=== PATIENT | female | born 1980 | race Hispanic/Latino ===

== ENCOUNTER 2017-03-12 02:43 | Outpatient (CLI) | payer MEDICAID, OTHER ==
[2017-03-12 03:11] VITALS: BP 136/80
[2017-03-12] MEDS ORDERED: VISTARIL PO ONE (05:35)
== END 2017-03-12 06:00 | disposition home or self-care (01) ==
LOC: TRG 02:43 → LD 03:01 → TRG 06:00
PROVIDERS: ATTEND Obstetrics & Gynecology
DX: O09.523 Supervision of elderly multigravida, third trimester (principal); O62.9 Abnormality of forces of labor, unspecified; O48.0 Post-term pregnancy; Z3A.40 40 weeks gestation of pregnancy
CPT/HCPCS: Q0177

== ENCOUNTER 2017-03-12 17:09 | Inpatient (IN) | payer MEDICAID ==
[2017-03-12] MEDS ORDERED: PITOCin/NS 20 UNIT/1000ML DRIP 20,000 MILLIUNITS/1,000 ML BAG IV ONE (17:25)
[2017-03-12] MEDS ORDERED: LACTATED RINGERS 1,000 ML ONE (17:25)
[2017-03-12] MEDS ORDERED: SUBLIMAZE ONE (17:35)
[2017-03-12] MEDS ORDERED: PHENERGAN PR PRN ×2 (17:52→23:08)
[2017-03-12] MEDS ORDERED: PHENERGAN PO PRN ×2 (17:52→23:08)
[2017-03-12] MEDS ORDERED: SUBLIMAZE IV PRN (17:52)
[2017-03-12] MEDS ORDERED: ZOFRAN IV PRN ×2 (17:52→23:08)
[2017-03-12] MEDS ORDERED: MINERAL OIL PO PRN (17:52)
[2017-03-12] MEDS ORDERED: STADOL IV PRN (17:52)
--- NOTE | 2017-03-12 17:52 | History and Physical Report ---
History of Present Illness Date of examination: 03/12/17 Date of admission: 03/12/17 17:17 Chief complaint: Labor/srom History of present illness: EDC Confirmation: 03/15/2017 Gestational Age: 18 6/7 weeks Past History : 5 Term Births: 4 Living Children: 4 Para: 4 Prev : 0 Past Medical History: Reviewed history from 07/23/2014 and no changes required: Negative Past Medical History Past Surgical History: Reviewed history from 07/23/2014 and no changes required: negative Past Medical History Anesthesia Complications: negative Anemia: negative Autoimmune Disorder: negative Bleeding Disorder: negative Blood Transfusions: negative Breast Disease: negative Diabetes: negative Heart Disease: negative Hypertension: negative Hepatitis/Liver Disease: negative Kidney Disease/UTI: negative Neurologic/Epilepsy/Migraines: negative Phlebitis/Varicosities: negative Psychiatric: negative Pulmonary Disease/Asthma: negative Thyroid Disease: negative Hospitalizations: negative Surgery (Non-vice president of talent acquisition): negative Abnormal PAP: negative YASMIN Exposure: negative Infertility: negative Uterine Anomaly: negative Uterine Surgery (not C/S): negative Other Gynecologic Problems: negative 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 Infection History Hx of STD: none HIV Risk Eval: no Hepatitis B Risk Eval: low risk Personal hx. of genital herpes: no Partner hx. of genital herpes: no Rash, Viral, or Febrile illness since last LMP? no Varicella/Chicken Pox Status: Previous Disease Genetic History Congenital Heart Defect: Mom: no Dad: no Joanne Disease: Mom: no Dad: no Thalassemia Mom: no Dad: no Neural Tube Defect Mom: no Dad: no Down's Syndrome Mom: no Dad: no Skyler-Sachs Mom: no Dad: no Sickle Cell Disease/Trait Mom: no Dad: no Hemophilia Mom: no Dad: no Muscular Dystrophy Mom: no Dad: no Cystic Fibrosis Mom: no Dad: no [place] Chorea Mom: no Dad: no Mental Retardation Mom: no Dad: no Fragile X Mom: no Dad: no Other Genetic/Chromosomal Disorder Mom: no Dad: no Child w/other defect Mom: no Dad: no Comments/Counseling: Pt will be 37 at time of delivery, declines referral to [facility] ........................................................... ........Debo Awan GONSALO October 18, 2016 2:53 PM Enviromental Exposures Xray Exposure: no Medication, drug, or alcohol use since LMP: no Chemical/Other Exposure: no Exposure to Cat Liter: no Hx of Parvovirus (Fifth Disease): no Occupational Exposure to Children: none Active Medications (reviewed today): VITAMINS () NYSTATIN ORAL SUSPENSION [id number]/ML () 4-6 ml 1/2 dose - treated each side of mouth- 4times QD Retain in mouth for as long as possible then swallow Current Allergies (reviewed today):No known allergies Past History - Obstetrical History Expected Date of Delivery: 03/15/17 Actual Gestation: 39 Week(s) 4 Day(s) : 5 Medications and Allergies Allergies Allergy/AdvReac Type Severity Reaction Status Date / Time No Known Allergies Allergy Verified 03/12/17 17:20 Home Medications Medication Instructions Recorded Confirmed Last Taken Type Tablet 1 tab PO DAILY 02/24/15 03/12/17 03/10/17 09:00 History Review of Systems All systems: negative Genitourinary: leakage of fluid, contractions - Vital Signs Vital signs: Vital Signs Pulse BP 117 H 135/86 03/12/17 17:16 03/12/17 17:16 Temp Pulse Resp BP Pulse Ox 98.6 F 117 H 22 135/86 03/12/17 17:22 03/12/17 17:22 03/12/17 17:22 03/12/17 17:22 - Physical Exam Breasts: Positive: deferred Lungs: Positive: Normal air movement Abdomen: Positive: normal appearance - Obstetrical FHR: category 1 Uterine Contraction Monitor Mode: External Cervical Dilatation: 8 (per RN) Uterine Contraction Pattern: Regular Results All other labs normal. Assessment and Plan - Patient Problems (1) 39 weeks gestation of Current Visit: No Status: Acute Plan to address problem: Expectant management (2) Rupture of membranes with meconium present Current Visit: Yes Status: Acute
[2017-03-12] MEDS ORDERED: ePHEDrine SULFATE IV PRN (18:01)
[2017-03-12] MEDS ORDERED: NUBAIN IV PRN (18:02)
[2017-03-12] MEDS ORDERED: BRETHINE IVP PRN (18:30)
[2017-03-12] MEDS ORDERED: BRETHINE SUB-Q PRN (18:30)
--- NOTE | 2017-03-12 18:53 | Progress Note ---
Assessment and Plan - Patient Problems (1) 39 weeks gestation of Current Visit: No Status: Acute (2) Rupture of membranes with meconium present Current Visit: Yes Status: Acute Plan to address problem: Expectant management Subjective - Subjective Date of service: 03/12/17 Principal diagnosis: 39 weeks SROM, labo Interval history: EDC Confirmation: 03/15/2017 Gestational Age: 18 6/7 weeks Past History : 5 Term Births: 4 Living Children: 4 Para: 4 Prev : 0 Past Medical History: Reviewed history from 07/23/2014 and no changes required: Negative Past Medical History Past Surgical History: Reviewed history from 07/23/2014 and no changes required: negative Past Medical History Anesthesia Complications: negative Anemia: negative Autoimmune Disorder: negative Bleeding Disorder: negative Blood Transfusions: negative Breast Disease: negative Diabetes: negative Heart Disease: negative Hypertension: negative Hepatitis/Liver Disease: negative Kidney Disease/UTI: negative Neurologic/Epilepsy/Migraines: negative Phlebitis/Varicosities: negative Psychiatric: negative Pulmonary Disease/Asthma: negative Thyroid Disease: negative Hospitalizations: negative Surgery (Non-guidance adviser): negative Abnormal PAP: negative YASMIN Exposure: negative Infertility: negative Uterine Anomaly: negative Uterine Surgery (not C/S): negative Other Gynecologic Problems: negative 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 Infection History Hx of STD: none HIV Risk Eval: no Hepatitis B Risk Eval: low risk Personal hx. of genital herpes: no Partner hx. of genital herpes: no Rash, Viral, or Febrile illness since last LMP? no Varicella/Chicken Pox Status: Previous Disease Genetic History Congenital Heart Defect: Mom: no Dad: no Joanne Disease: Mom: no Dad: no Thalassemia Mom: no Dad: no Neural Tube Defect Mom: no Dad: no Down's Syndrome Mom: no Dad: no Skyler-Sachs Mom: no Dad: no Sickle Cell Disease/Trait Mom: no Dad: no Hemophilia Mom: no Dad: no Muscular Dystrophy Mom: no Dad: no Cystic Fibrosis Mom: no Dad: no Jennifer Chorea Mom: no Dad: no Mental Retardation Mom: no Dad: no Fragile X Mom: no Dad: no Other Genetic/Chromosomal Disorder Mom: no Dad: no Child w/other defect Mom: no Dad: no Comments/Counseling: Pt will be 37 at time of delivery, declines referral to [facility] .............................................................. .....Debo Lv [facility] October 18, 2016 2:53 PM Enviromental Exposures Xray Exposure: no Medication, drug, or alcohol use since LMP: no Chemical/Other Exposure: no Exposure to Cat Liter: no Hx of Parvovirus (Fifth Disease): no Occupational Exposure to Children: none Active Medications (reviewed today): VITAMINS () NYSTATIN ORAL SUSPENSION 601156GRNOG/ML () 4-6 ml 1/2 dose - treated each side of mouth- 4times QD Retain in mouth for as long as possible then swallow Current Allergies (reviewed today):No known allergies Patient reports: no new complaints Objective - Vital Signs Vital Signs: Vital Signs - 12hr 03/12/17 03/12/17 17:16 17:22 Temperature 98.6 F Pulse Rate 117 H 117 H Respiratory 22 Rate Blood Pressure 135/86 135/86 - Exam Lungs: Normal air movement FHR: category 1 Uterine Contraction Monitor Mode: External Cervical Dilatation: 8 (more lip to patient's (R)) Cervical Effacement Percentage: 90 station: 1 Uterine Contraction Pattern: Regular
[2017-03-12] MEDS ORDERED: LACTATED RINGERS 1,000 ML IV SCH (19:00)
[2017-03-12] MEDS ORDERED: PITOCin/NS 20 UNIT/1000ML DRIP 20 UNITS/1,000 ML BAG IV SCH (19:00)
[2017-03-12] MEDS ORDERED: XYLOCAINE 2% INFILTRATI ONE (19:00)
[2017-03-12 19:03] LABS: Hemoglobin 12.9 gm/dl (10.1-14.3); Mean Corpuscular HGB Conc 34 % (30-34); Mean Corpuscular Hemoglobin 28 pg (28-32); Mean Corpuscular Volume 83 fl (79-97); Platelet Count 239 K/mm3 (140-440); Red Blood Count 4.58 M/mm3 (3.65-5.03); Red Cell Distribution Width 13.8 % (13.2-15.2); White Blood Count 13.2 K/mm3 (4.5-11.0)
[2017-03-12] MEDS ORDERED: PITOCin/NS 30 UNIT/500ML 30 UNITS/500 ML BAG IV SCH (19:05)
--- NOTE | 2017-03-12 21:12 | Procedure Note ---
OB Delivery Note - Delivery Date of Delivery: 03/12/17 Surgeon: NAHID MCGOWAN Estimated blood loss: 300cc (IV inflitrated, IM pitocin given) - Vaginal Delivery presentation: vertex Delivery position: OA Intrapartum events: meconium Delivery induction: none Delivery monitor: external FHT, external uterine Route of delivery: Delivery placenta: spontaneous (intact) Episiotomy: none Delivery laceration: 1st degree (repaired with lidocaine 2% w/o epi and 3- 0vicryl one stitch needed) Delivery repair: vicryl Anesthesia: local (for repair) - A at 1 minute: 8 at 5 minutes: 9 Infant Gender: Female (skin-skin with delayed cord clamping)
[2017-03-12] MEDS ORDERED: TORADOL IM ONE (22:00)
[2017-03-12] MEDS ORDERED: SODIUM CHLORIDE FLUSH SYRINGE 10 ML IV PRN (23:08)
[2017-03-12] MEDS ORDERED: HEMABATE IM PRN (23:08)
[2017-03-12] MEDS ORDERED: CYTOTEC PR PRN (23:08)
[2017-03-12] MEDS ORDERED: MILK OF MAGNESIA PO PRN (23:08)
[2017-03-12] MEDS ORDERED: DERMOPLAST TP PRN (23:08)
[2017-03-12] MEDS ORDERED: DULCOLAX PR PRN (23:08)
[2017-03-12] MEDS ORDERED: TUCKS PAD TP PRN (23:08)
[2017-03-12] MEDS ORDERED: BENADRYL PO PRN (23:08)
[2017-03-12] MEDS ORDERED: TORADOL IV PRN (23:08)
[2017-03-12] MEDS ORDERED: METHERGINE IM PRN (23:08)
[2017-03-12] MEDS ORDERED: TYLENOL PO PRN (23:08)
[2017-03-12] MEDS ORDERED: LANSINOH TP PRN (23:08)
[2017-03-12] MEDS ORDERED: PERCOCET 5/325 PO PRN (23:08)
[2017-03-12] MEDS: COLACE PO SCH (23:26)
[2017-03-12] MEDS: MOTRIN PO SCH (23:28)
[2017-03-13] MEDS ORDERED: SOLARCAINE ALOE TP PRN (03:39)
[2017-03-13] MEDS: MOTRIN PO SCH ×3 (05:55→19:53)
[2017-03-13] MEDS ORDERED: BOOSTRIX IM ONE (06:00)
[2017-03-13] MEDS: COLACE PO SCH (08:39)
[2017-03-13 11:02] LABS: Hemoglobin 10.5 gm/dl (10.1-14.3)
--- NOTE | 2017-03-13 13:19 | Progress Note ---
Assessment and Plan - Patient Problems (1) Spontaneous vaginal delivery Current Visit: No Status: Acute (2) Hemorrhoids Current Visit: Yes Status: Acute Qualifiers: Hemorrhoid type: second degree Qualified Code(s): K64.1 - Second degree hemorrhoids Plan to address problem: Improved with Tuck, and cool packs, d/c home tomorrow Subjective - Subjective Date of service: 03/13/17 Principal diagnosis: PPD#1 ; girl Interval history: Doing well, hemorrhoids better, minimal bleeding Patient reports: appetite normal, pain well controlled, ambulating normally Objective - Vital Signs Latest vital signs: Vital Signs Temp Pulse Resp BP 03/13/17 08:42 20 03/13/17 08:40 98.5 F 74 20 134/76 03/13/17 04:00 99 F 90 20 113/56 03/12/17 23:36 98.5 F 105 H 18 124/65 03/12/17 22:11 86 147/72 03/12/17 21:56 96 H 152/85 03/12/17 21:41 95 H 151/77 03/12/17 21:26 96 H 144/74 03/12/17 21:11 97.0 F L 0 L 18 0/0 03/12/17 19:58 98.3 F 0 L 20 0/0 03/12/17 18:53 93 H 125/66 03/12/17 17:22 98.6 F 117 H 22 135/86 03/12/17 17:16 117 H 135/86 Intake and Output 03/12/17 03/13/17 03/13/17 22:59 06:59 14:59 Intake Total 240 120 Output Total 400 Balance -160 120 Intake: Oral 120 Intake, Free Water 240 Output: Urine 400 Void 400 Other: Total, Intake Amount 120 Total, Output Amount 400 Weight 127.006 kg Estimated Blood Loss 300 - Exam Breasts: Present: normal, . Absent: engorged Lungs: Present: Normal air movement Abdomen: Present: normal appearance Vulva: both: normal Uterus: Present: normal, firm, fundal height below umbilicus Extremities: Present: normal. Absent: tenderness, edema - Labs Labs: Abnormal lab results 03/12/17 Range/Units 18:41 WBC 13.2 H (4.5-11.0) K/mm3
[2017-03-14] MEDS: MOTRIN PO SCH ×3 (04:59→11:12)
--- NOTE | 2017-03-14 07:51 | Discharge Summary ---
Providers - Providers Date of Admission: 03/12/17 17:17 Date of discharge: 03/14/17 (pt agrees with d/c ) Attending physician: NAHID MCGOWAN 03/12/17 23:08 Consult to Private Investigator Surveillance [CONS] Routine Reason For Exam: assistance with , SNS Primary care physician: NAHID MCGOWAN Hospitalization Reason for admission: active labor Delivery: Episiotomy: none Laceration: none Incision: normal Other procedures: none Discharge diagnosis: IUP at term delivered baby: female Hospital course: uncomplicated vaginal delivery Pt w/o complaint VSS BP 130/70 FF below umb Lochia scant Perineum intact H&H drop r/t blood loss from delivery Doing well s/p vag delivery P: d/c today with instructions RTO 4 weeks for PPC Condition at discharge: Good Disposition: DC-01 TO HOME OR SELFCARE - Discharge Diagnoses (1) Spontaneous vaginal delivery Status: Acute Comment: rto 4 weeks PP care Plan - Discharge Medications Prescriptions: Ibuprofen [Motrin 800 MG tab] 800 mg PO TID PRN #30 tablet PRN Reason: Pain - Provider Discharge Summary Activity: routine, no sex for 6 weeks, no heavy lifting 4 weeks, no strenuous exercise Diet: routine Instructions: routine Additional instructions: [] Smoking cessation referral if applicable(refer to patient education folder for contact #) [] Refer to [facility]'s [facility] Booklet Call your doctor immediately for: * Fever > 100.5 * Heavy vaginal bleeding ( >1 pad per hour) * Severe persistent headache * Shortness of breath * Reddened, hot, painful area to leg or breast * Drainage or odor from incision. * Keep incision clean and dry at all times and follow doctor's instructions regarding bathing/showering - Follow up plan Follow up: NAHID MCGOWAN MD [Primary Care Provider] - 04/14/17 (Please call [phone] to schedule your postoperative visit in 4 weeks. Take medications as prescribed. Call with concerns.)
[2017-03-14 09:53] VITALS: BP 135/69
[2017-03-14] MEDS: COLACE PO SCH (11:11)
== END 2017-03-14 11:30 | disposition home or self-care (01) | DRG 775 ==
LOC: TRG 17:09 → LD 17:17 → OB 22:35
PROVIDERS: ADMIT Obstetrics & Gynecology; ATTEND Obstetrics & Gynecology
PROC: 10E0XZZ Delivery of Products of Conception, External Approach (ICD-10-PCS; principal; 2017-03-12)
PROC: 0HQ9XZZ Repair Perineum Skin, External Approach (ICD-10-PCS; 2017-03-12)
DX: O77.0 Labor and delivery complicated by meconium in amniotic fluid (principal); O70.0 First degree perineal laceration during delivery; Z3A.39 39 weeks gestation of pregnancy; Z37.0 Single live birth; O76 Abnormality in fetal heart rate and rhythm complicating labor and delivery; K64.1 Second degree hemorrhoids; O75.89 Other specified complications of labor and delivery
CPT/HCPCS: 36415; 85014; 85018; 85027; 86592; 86850; 86900; 86901; 90471; 90715; 99211; G0463; J1885; J2590; J3010; J7120